=== PATIENT | female | born 1975 | race Caucasian/White ===

== ENCOUNTER 2020-09-04 14:07 | Emergency (ER) | payer MEDICARE ==
[2020-09-05 07:07] LABS: SARS-CoV-2 NAA Not Detected (Not Detected)
== END 2020-09-04 15:24 | disposition home or self-care (01) ==
LOC: JVIRT 14:07
DX: Z20.828 Contact with and (suspected) exposure to other viral communicable diseases (principal)
CPT/HCPCS: C9803; G2251-GT; U0003; U0005

== ENCOUNTER 2023-02-23 04:19 | Day surgery (SDC) | payer MEDICARE, OTHER ==
[2023-02-19 13:09] VITALS: BMI 39.3
[~2023-02-23 04:19] MED LIST: BUPIVACAINE HCL/PF 0.25% (2.5MG/ML) 10 ML VIAL IJ ONE
[2023-02-23] MEDS ORDERED: BUPIVACAINE HCL/PF 0.25% (2.5MG/ML) 10 ML VIAL ONE (07:25)
[2023-02-23] MEDS ORDERED: HEPARIN NA (PORCINE) 5,000 UNITS/ML 1ML VIAL ONE (07:36)
[2023-02-23] MEDS ORDERED: cefOXitin SODIUM 2 GM VIAL (RESTRICTED TO ID) IVPB ONE ×2 (07:36→08:48)
[2023-02-23] MEDS ORDERED: PROPOFOL 20 ML ONE ×2 (08:21→10:44)
[2023-02-23] MEDS ORDERED: MIDAZOLAM HCL 2 MG/2 ML SINGLE DOSE VIAL ONE (08:21)
[2023-02-23] MEDS ORDERED: FENTANYL CITRATE/PF 50 MCG/ML VIAL ONE ×6 (08:21→11:50)
[2023-02-23] MEDS ORDERED: ROCURONIUM BROMIDE 50 MG/5 ML SYRINGE ONE ×2 (08:21→09:24)
[2023-02-23] MEDS ORDERED: SODIUM CHLORIDE 0.9% P/F 10 ML VIAL IJ ONE ×2 (08:33→08:47)
[2023-02-23] MEDS ORDERED: LIDOCAINE HCL/PF 2% SDV 5ML VIAL ONE (08:33)
[2023-02-23] MEDS ORDERED: ACETAMINOPHEN INJECTION 100 ML IVPB ONE (08:46)
[2023-02-23] MEDS ORDERED: DEXAMETHASONE SOD PHOSPHATE 4 MG/1 ML VIAL ONE (08:46)
[2023-02-23] MEDS ORDERED: ONDANSETRON 4 MG/2 ML VIAL ONE (08:46)
[2023-02-23] MEDS ORDERED: BUPIVACAINE HCL/PF 0.25% (2.5MG/ML) 10 ML VIAL IJ ONE (09:05)
[2023-02-23] MEDS ORDERED: SUGAMMADEX SODIUM 200 MG/2 ML VIAL ONE (10:54)
[2023-02-23] MEDS ORDERED: PROMETHAZINE HCL 25 MG/1 ML VIAL IVPB PRN (11:13)
[2023-02-23] MEDS ORDERED: ONDANSETRON 4 MG/2 ML VIAL IVPUSH PRN (11:13)
[2023-02-23] MEDS ORDERED: LACTATED RINGERS SOLUTION 1,000 ML IV SCH (11:15)
[2023-02-23] MEDS: HYDROmorphone HCl 2 MG/ML VIAL ONE ×3 (12:08→12:37)
[2023-02-23] MEDS ORDERED: HYDROmorphone HCl 2 MG/ML VIAL IVPUSH PRN (12:30)
[2023-02-23 14:21] VITALS: RESP 20
[2023-02-23] MEDS ORDERED: oxyCODONE HCL 5 MG TABLET PO ONE (16:18)
[2023-02-23] MEDS ORDERED: oxyCODONE HCL 5 MG TABLET ONE (16:36)
[2023-02-23 17:22] VITALS: BP 116/62; PULSE 94; TEMP 98
== END 2023-02-23 17:25 | disposition home or self-care (01) ==
LOC: JASU-SURG 04:19
PROVIDERS: ATTEND Surgery
PROC: 0FT44ZZ Resection of Gallbladder, Percutaneous Endoscopic Approach (ICD-10-PCS; principal; 2023-02-23 08:30)
DX: K81.1 Chronic cholecystitis (principal)
CPT/HCPCS: 47562; S2900; 81025; 88304-TC; 94760; J1644